=== PATIENT | female | born 2000 | race Caucasian/White ===

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

== ENCOUNTER 2023-02-22 22:13 | Emergency (ER) | payer BC ==
[2023-02-22] MEDS ORDERED: KETOROLAC 15 MG/ML 1 ML VIAL IVP STA (22:21)
[2023-02-22] MEDS ORDERED: SODIUM CHLORIDE 0.9% 1,000 ML IV ONE (22:21)
[2023-02-22 22:51] LABS: Basophils % (A) 1 %; Eosinophils # (A) 0.1 k/uL (0-0.7); Eosinophils % (A) 2 %; HCT 43.5 % (34.0-46.0); HGB 14.4 gm/dL (11.4-16.0); Lymphocytes # (A) 1.1 k/uL (1.0-4.8); Lymphocytes % (A) 17 %; MCHC 33.2 g/dL (31.0-37.0); MCV 93.3 fL (80.0-100.0); Mean Platelet Volume 7.6; Monocytes # (A) 0.3 k/uL (0-1.0); Monocytes % (A) 4 %; Neutrophils # (A) 4.9 k/uL (1.3-7.7); Neutrophils % (A) 75 %; Platelet Count 271 k/uL (150-450); RBC 4.66 m/uL (3.80-5.40); RDW 12.9 % (11.5-15.5); WBC 6.5 k/uL (4.0-11.0)
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
[2023-02-22 23:07] LABS: ALT 16 U/L (4-34); AST 21 U/L (14-36); African American GFR (CKD) >90 (>60 ml/min/1.73 sqM); Albumin 4.9 g/dL (3.5-5.0); Alkaline Phosphatase 68 U/L (38-126); Anion Gap 12 mmol/L; Blood Urea Nitrogen 4 mg/dL (7-17); Calcium 9.6 mg/dL (8.4-10.2); Carbon Dioxide 22 mmol/L (22-30); Chloride 107 mmol/L (98-107); Glucose 93 mg/dL (74-99); Magnesium 2.1 mg/dL (1.6-2.3); Non-African American GFR(CKD) >90 (>60 ml/min/1.73 sqM); Potassium 4.4 mmol/L (3.5-5.1); Sodium 141 mmol/L (137-145); Total Bilirubin 0.4 mg/dL (0.2-1.3); Total Protein 7.8 g/dL (6.3-8.2)
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
[2023-02-22 23:50] VITALS: BP 109/72; PULSE 92; RESP 18; TEMP 97.7
[2023-02-22] MEDS ORDERED: MORPHINE SULFATE 2 MG/ML SYRINGE IM STA (23:55)
== END 2023-02-23 00:09 | disposition home or self-care (01) ==
LOC: EC 22:13
DX: S00.91XA Abrasion of unspecified part of head, initial encounter (principal); J45.909 Unspecified asthma, uncomplicated; F41.9 Anxiety disorder, unspecified; F17.290 Nicotine dependence, other tobacco product, uncomplicated; Z79.899 Other long term (current) drug therapy; V43.62XA Car passenger injured in collision with other type car in traffic accident, initial encounter
CPT/HCPCS: 36415; 80053; 83735; 85025; 72125; 70450; 99285; 96374; 96361; 96372; J1885

== ENCOUNTER 2023-10-10 08:14 | Emergency (ER) | payer BC ==
[2023-10-10 08:29] VITALS: BP 139/98; PULSE 91; RESP 18; TEMP 97.8
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
== END 2023-10-10 09:12 | disposition home or self-care (01) ==
LOC: EC 08:14
DX: S01.312A Laceration without foreign body of left ear, initial encounter (principal); J45.909 Unspecified asthma, uncomplicated; F17.290 Nicotine dependence, other tobacco product, uncomplicated; Z86.59 Personal history of other mental and behavioral disorders; V89.2XXA Person injured in unspecified motor-vehicle accident, traffic, initial encounter; Y92.411 Interstate highway as the place of occurrence of the external cause
CPT/HCPCS: 70450; 72125; 99284

== ENCOUNTER 2024-11-18 20:12 | Emergency (ER) | payer BC, OTHER ==
--- NOTE | 2024-11-18 21:11 | ED ---
Upper Extremity HPI - General Chief Complaint: Extremity Injury, Upper Stated Complaint: cut tip of finger off Time Seen by Provider: 11/18/24 20:28 Source: patient, RN notes reviewed Mode of arrival: ambulatory Limitations: no limitations - History of Present Illness Initial Comments: This is a 23-year-old female presenting with injury to her right ring finger at 1930 this evening. Patient states she was cutting potatoes when she accidentally cut the tip of her right ring finger with significant bleeding despite application of pressure. Denies use of blood thinners. States tetanus vaccination is up-to-date. Denies other injuries. Patient is also requesting work note for tomorrow. Complaint: Injury to:: right, finger Onset/Timin -: hour(s) Time: 19:30 Other Extremity Injury: Fingers: Right (Lateral tip of ring finger) Other Injuries: none Handedness: right Place: home Treatments Prior to Arrival: bandage - Related Data Home Medications Medication Instructions Recorded Confirmed Eletriptan [Relpax] 40 mg PO Q12H PRN 10/10/23 10/10/23 QUEtiapine FUMARATE [SEROquel] 25 mg PO HS 10/10/23 10/10/23 Sertraline [Zoloft] 150 mg PO DAILY 10/10/23 10/10/23 hydrOXYzine pamoate [Vistaril] 50 mg PO Q6H PRN 10/10/23 10/10/23 Allergies Allergy/AdvReac Type Severity Reaction Status Date / Time No Known Allergies Allergy Verified 11/18/24 20:36 Review of Systems ROS Statement: Those systems with pertinent positive or pertinent negative responses have been documented in the HPI. ROS Other: All systems not noted in ROS Statement are negative. Past Medical History Past Medical History: Asthma, Pneumonia Additional Past Medical History / Comment(s): frequent UTI's. first metatarsal of left foot , broke growth plate February 13, 2016 History of Any Multi-Drug Resistant Organisms: None Reported Past Surgical History: No Surgical Hx Reported Past Anesthesia/Blood Transfusion Reactions: No Reported Reaction Past Psychological History: Anxiety Smoking Status: Vaper Past Alcohol Use History: Occasional Past Drug Use History: Marijuana - Past Family History Mother Additional Family Medical History / Comment(s): migraines and anemia Father Family Medical History: No Reported History Additional Family Medical History / Comment(s): previous hx of high cholesterol, now under control General Exam Limitations: no limitations General appearance: alert, in no apparent distress Head exam: Present: atraumatic, normocephalic, normal inspection Eye exam: Present: normal appearance, PERRL, EOMI. Absent: scleral icterus, conjunctival injection, periorbital swelling ENT exam: Present: normal exam, mucous membranes moist Neck exam: Present: normal inspection. Absent: tenderness, meningismus, lymphadenopathy Respiratory exam: Present: normal lung sounds bilaterally. Absent: respiratory distress, wheezes, rales, rhonchi, stridor Cardiovascular Exam: Present: regular rate, normal rhythm, normal heart sounds. Absent: systolic murmur, diastolic murmur, rubs, gallop, clicks GI/Abdominal exam: Present: soft, normal bowel sounds. Absent: distended, tenderness, guarding, rebound, rigid Extremities exam: Present: full ROM, normal capillary refill, other (Positive minor complete avulsion of medial tip of right fourth digit with some damage to distal nail. Negative foreign body, exposure of bone/tendon.). Absent: tenderness, pedal edema, joint swelling, calf tenderness Back exam: Present: normal inspection Neurological exam: Present: alert, oriented X3, CN II-XII intact Psychiatric exam: Present: normal affect, normal mood Skin exam: Present: warm, dry, intact, normal color. Absent: rash Course Vital Signs 11/18/24 20:33 Temperature 97.7 F Pulse Rate 73 Respiratory 18 Rate Blood Pressure 144/86 O2 Sat by Pulse 98 Oximetry Medical Decision Making - Medical Decision Making Was pt. sent in by a medical professional or institution (, PA, INSURANCE SALES ASSOCIATE, urgent care, hospital, or intermediate...) When possible be specific @ -[No] Did you speak to anyone other than the patient for history (EMS, parent, family, police, friend...)? What history was obtained from this source @ -[No] Did you review nursing and triage notes (agree or disagree)? Why? @ -[I reviewed and agree with nursing and triage notes] Were old charts reviewed (outside hosp., previous admission, EMS record, old EKG, old radiological studies, urgent care reports/EKG's, intermediate records)? Report findings @ -[No old charts were reviewed] Differential Diagnosis (chest pain, altered mental status, abdominal pain women, abdominal pain men, vaginal bleeding, weakness, fever, dyspnea, syncope, headache, dizziness, GI bleed, back pain, seizure, CVA, palpatations, mental health, musculoskeletal)? @ -Differential Musculoskeletal Muscular strain, contusion, ligament sprain, fracture, arthritis, septic arthritis, bursitis, cellulitis, muscle spasm, nerve compression, DVT, arterial occlusion, herpes zoster, electrolyte abnormality, tumor.... This is not meant to be in all inclusive list EKG interpreted by me (3pts min.). @ -Not done X-rays interpreted by me (1pt min.). @ -Finger x-ray shows only soft tissue injury and no fracture or injury to di stal phalange of right ring finger CT interpreted by me (1pt min.). @ -[None done] U/S interpreted by me (1pt. min.). @ -[None done] What testing was considered but not performed or refused? (CT, X-rays, U/S, labs)? Why? @ -[None] What meds were considered but not given or refused? Why? @ -[None] Did you discuss the management of the patient with other professionals (professionals i.e. , PA, INSURANCE SALES ASSOCIATE, lab, RT, psych nurse, outreach and education social worker, analytics associate, teacher, patient safety officer, case management manager)? Give summary @ -[No] Was smoking cessation discussed for >3mins.? @ -[No] Was critical care preformed (if so, how long)? @ -[No] Were there social determinants of health that impacted care today? How? (Homelessness, low income, unemployed, alcoholism, drug addiction, transportation, low edu. Level, literacy, decrease access to med. care, halfway, rehab)? @ -[No] Was there de-escalation of care discussed even if they declined (Discuss DNR or withdrawal of care, Hospice)? DNR status @ -[No] What co-morbidities impacted this encounter? (DM, HTN, Smoking, COPD, CAD, Cancer, CVA, ARF, Chemo, Hep., AIDS, mental health diagnosis, sleep apnea, morbid obesity)? @ -[None] Was patient admitted / discharged? Hospital course, mention meds given and route, prescriptions, significant lab abnormalities, going to OR and other pertinent info. @ -[hospital course] Undiagnosed new problem with uncertain prognosis? @ -[No] Drug Therapy requiring intensive monitoring for toxicity (Heparin, Nitro, Insulin, Cardizem)? @ -[No] Were any procedures done? @ -[No] Diagnosis/symptom? @ -Complete avulsion of right ring fingertip Acute, or Chronic, or Acute on Chronic? @ -Acute Uncomplicated (without systemic symptoms) or Complicated (systemic symptoms)? @ -Uncomplicated Side effects of treatment? @ -[No] Exacerbation, Progression, or Severe Exacerbation? @ -[No] Poses a threat to life or bodily function? How? (Chest pain, [place], [place], pneumonia, PE, COPD, DKA, ARF, appy, cholecystitis, CVA, Diverticulitis, Homicidal, Suicidal, threat to staff... and all critical care pts) @ -[No] Disposition Clinical Impression: Avulsion of fingertip Disposition: HOME SELF-CARE Condition: Good Instructions (If sedation given, give patient instructions): Acute Wound Care (ED) Additional Instructions: Keep wound clean with antibacterial soap and water at least twice daily with dressing change. Is patient prescribed a controlled substance at d/c from ED?: No Referrals: None,Stated [Primary Care Provider] - 1-2 days Penny Cordova MD [STAFF PHYSICIAN] - 1-2 days Time of Disposition: 21:18
--- NOTE | 2024-11-18 21:24 | XR ---
EXAMINATION TYPE: XR finger RT DATE OF EXAM: 11/18/2024 9:18 PM COMPARISON: None. CLINICAL INDICATION: Female, 23 years old with history of Right fourth digit complete avulsion of tip , pain TECHNIQUE: XR finger RT views are submitted. FINDINGS: No displaced fracture is seen with certainty. Joint spaces are well-preserved. Soft tissue amputatio n distal tip of the right fourth digit. No radiopaque foreign body appreciated. IMPRESSION: No acute displaced fracture or dislocation. Soft tissue injury. [facility], , 11/18/2024 9:21 PM
[2024-11-18 21:40] VITALS: BP 122/79; PULSE 72; RESP 16; TEMP 98
[2024-11-18] MEDS: SILVER NITRATE APPLICATOR 1 EACH STICK..EA. TOPICAL STA (21:49)
== END 2024-11-18 21:49 | disposition home or self-care (01) ==
LOC: EC 20:12
DX: S61.304A Unspecified open wound of right ring finger with damage to nail, initial encounter (principal); F17.290 Nicotine dependence, other tobacco product, uncomplicated; W26.0XXA Contact with knife, initial encounter; Y92.019 Unspecified place in single-family (private) house as the place of occurrence of the external cause
CPT/HCPCS: 99283